=== PATIENT | female | born 1980 | race Caucasian/White ===

== ENCOUNTER 2016-12-03 09:44 | Emergency (ER) | payer MEDICARE, MEDICAID ==
[2015-11-04 15:32] VITALS: BMI 39.0
[~2016-12-03 09:44] MED LIST: ABILIFY2 MG PO; CYMBALTA60 MG PO; EFFEXOR75 MG PO; MELOXICAM PO; NEURONTIN600 MG PO; NEXIUM40 MG PO; PEPCID20 MG PO; PHENERGAN25 M1 PO; PROVENTIL HFA6.7 GM INH; REQUIP XL2 MG PO; REQUIP XL4 MG PO; TOPAMAX25 MG PO; TOPAMAX50 MG PO; TYLENOL #4 W/CO1 TAB PO; XANAX0.5 MG PO; ZANAFLEX4 MG PO
== END 2016-12-03 10:32 | disposition home or self-care (01) ==
LOC: D.ER 09:44
DX: M54.5 Low back pain (principal); M62.830 Muscle spasm of back

== ENCOUNTER 2017-06-18 07:44 | Emergency (ER) | payer MEDICARE, MEDICAID ==
[2015-11-04 15:32] VITALS: BMI 39.0
== END 2017-06-18 08:37 | disposition home or self-care (01) ==
LOC: D.ER 07:44
DX: G43.909 Migraine, unspecified, not intractable, without status migrainosus (principal)

== ENCOUNTER 2017-07-13 02:42 | Emergency (ER) | payer MEDICARE, MEDICAID | END 2017-07-13 03:45 | disposition home or self-care (01) | LOC: D.ER 02:42 | DX: S30.0XXA Contusion of lower back and pelvis, initial encounter (principal); W10.9XXA Fall (on) (from) unspecified stairs and steps, initial encounter; Y93.89 Activity, other specified; Y92.019 Unspecified place in single-family (private) house as the place of occurrence of the external cause; F17.200 Nicotine dependence, unspecified, uncomplicated ==

== ENCOUNTER 2017-11-06 07:26 | Emergency (ER) | payer MEDICARE, MEDICAID ==
[2015-11-04 15:32] VITALS: BMI 39.0
== END 2017-11-06 07:57 | disposition home or self-care (01) ==
LOC: D.ER 07:26
DX: J01.00 Acute maxillary sinusitis, unspecified (principal)

== ENCOUNTER 2018-04-16 07:26 | Emergency (ER) | payer MEDICARE, MEDICAID ==
[~2018-04-16] VITALS: Ht 160 cm; Wt 97.7 kg
[2018-04-16 07:28] VITALS: Ht 160 cm; Wt 97.7 kg
[2018-04-16] MEDS ORDERED: TYLENOL #4 W/CO1 TAB PO (08:41)
[2018-04-16 08:49] VITALS: BP 128/76
== END 2018-04-16 08:52 | disposition home or self-care (01) ==
LOC: D.ER 07:26
DX: M79.671 Pain in right foot (principal)

== ENCOUNTER 2018-04-30 22:04 | Emergency (ER) | payer MEDICARE, MEDICAID ==
[~2018-04-30] VITALS: Ht 160 cm; Wt 95.5 kg
[2018-04-30 22:16] VITALS: Ht 160 cm; Wt 95.5 kg
[2018-04-30 23:18] LABS: APPEARANCE HAZY (CLEAR); BILIRUBIN NEGATIVE (NEGATIVE); COLOR YELLOW (YELLOW); GLUCOSE NEGATIVE (NEGATIVE); KETONE NEGATIVE (NEGATIVE); NITRITE NEGATIVE (NEGATIVE); PROTEIN NEGATIVE (NEGATIVE); SPECIFIC GRAVITY 1.025 (1.005-1.020); UROBILINOGEN NORMAL (NORMAL)
[2018-04-30 23:27] LABS: AMORPHOUS SEDIMENT >1+ /lpf (NONE SEEN); BACTERIA MODERATE /hpf (NONE SEEN); EPITHELIAL CELLS OCC /hpf (0-5); HYALINE CAST 0-5 /lpf (NONE SEEN); MUCUS <1+ /lpf (NONE SEEN); RED CELLS - URINE 0-5 /hpf (0-5); WHITE CELLS - URINE 0-5 /hpf (0-5)
[2018-05-01] MEDS ORDERED: FLAGYL500 MG PO (00:56)
[2018-05-01 01:15] VITALS: BP 121/88
== END 2018-05-01 01:15 | disposition home or self-care (01) ==
LOC: D.ER 22:04
PROVIDERS: Family Medicine
DX: N76.0 Acute vaginitis (principal); B96.89 Other specified bacterial agents as the cause of diseases classified elsewhere

== ENCOUNTER 2018-05-08 19:49 | Emergency (ER) | payer MEDICARE, MEDICAID ==
[~2018-05-08] VITALS: Ht 160 cm; Wt 97.1 kg
[~2018-05-08 19:49] MED LIST changes: +FLAGYL500 MG PO
[2018-05-08 20:13] VITALS: Ht 160 cm; Wt 97.1 kg
[2018-05-08] MEDS ORDERED: TYLENOL #4 W/CO1 TAB PO (21:25)
[2018-05-08 21:57] VITALS: BP 128/89
== END 2018-05-08 21:58 | disposition home or self-care (01) ==
LOC: D.ER 19:49
DX: S93.601A Unspecified sprain of right foot, initial encounter (principal); X58.XXXA Exposure to other specified factors, initial encounter; Y93.89 Activity, other specified; Y92.019 Unspecified place in single-family (private) house as the place of occurrence of the external cause

== ENCOUNTER 2018-12-28 03:19 | Emergency (ER) | payer OTHER, MEDICAID ==
[~2018-12-28] VITALS: Ht 160 cm; Wt 87.3 kg
[2018-12-28 03:22] VITALS: Ht 160 cm; Wt 87.3 kg
[2018-12-28] MEDS ORDERED: NEURONTIN600 MG PO (03:25)
[2018-12-28] MEDS ORDERED: XANAX0.25 MG PO (03:25)
[2018-12-28 03:45] LABS: APPEARANCE CLEAR (CLEAR); BILIRUBIN NEGATIVE (NEGATIVE); COLOR STRAW (YELLOW); GLUCOSE NEGATIVE (NEGATIVE); KETONE NEGATIVE (NEGATIVE); NITRITE NEGATIVE (NEGATIVE); PROTEIN NEGATIVE (NEGATIVE); UROBILINOGEN NORMAL (NORMAL)
[2018-12-28 03:46] LABS: HCG URINE NEGATIVE (NEGATIVE)
[2018-12-28 03:53] LABS: UDS - AMPHET NEGATIVE QUAL (NEGATIVE); UDS - BARB NEGATIVE QUAL (NEGATIVE); UDS - BENZO NEGATIVE QUAL (NEGATIVE); UDS - COCAINE NEGATIVE QUAL (NEGATIVE); UDS - OPIATE POSITIVE QUAL (NEGATIVE); UDS - PCP NEGATIVE QUAL (NEGATIVE); UDS - THC POSITIVE QUAL (NEGATIVE)
[2018-12-28] MEDS ORDERED: ZITHROMAX TRI-500 MG PO (04:01)
[2018-12-28] MEDS ORDERED: TESSALON PERLE100 MG PO (04:01)
[2018-12-28 04:19] VITALS: BP 132/74
== END 2018-12-28 04:20 | disposition home or self-care (01) ==
LOC: D.ER 03:19
PROVIDERS: Family Medicine
DX: J40 Bronchitis, not specified as acute or chronic (principal); R05 Cough

== ENCOUNTER 2019-01-28 04:48 | Emergency (ER) | payer MEDICARE, MEDICAID ==
[~2019-01-28] VITALS: Ht 160 cm; Wt 84.5 kg
[~2019-01-28 04:48] MED LIST changes: +TESSALON PERLE100 MG PO; +XANAX0.25 MG PO; +ZITHROMAX TRI-500 MG PO
[2019-01-28 04:53] VITALS: Ht 160 cm; Wt 84.5 kg
[2019-01-28] MEDS ORDERED: PROMETHAZINE W473 ML PO (05:02)
[2019-01-28] MEDS ORDERED: ZITHROMAX500 MG PO (05:02)
[2019-01-28 05:50] VITALS: BP 124/73
== END 2019-01-28 05:50 | disposition home or self-care (01) ==
LOC: D.ER 04:48
DX: B96.0 Mycoplasma pneumoniae [M. pneumoniae] as the cause of diseases classified elsewhere (principal)

== ENCOUNTER → 2019-03-02 08:23 | Outpatient (CLI) | payer MEDICARE, MEDICAID ==
[2019-01-28 04:53] VITALS: BMI 33.0
[~2019-03-02 08:23] MED LIST changes: +ALBUTEROL SULF8.5 GM INH; +AMOXICILLIN500 M1 PO; +PROMETHAZINE W473 ML PO; +ZITHROMAX500 MG PO
== END | disposition home or self-care (01) ==
LOC: D.RAD 08:23
PROVIDERS: ATTEND Family Medicine
DX: M54.2 Cervicalgia (principal); M25.512 Pain in left shoulder

== ENCOUNTER 2019-03-06 00:17 | Emergency (ER) | payer MEDICARE, MEDICAID ==
[~2019-03-06 00:17] MED LIST changes: -ALBUTEROL SULF8.5 GM INH; -AMOXICILLIN500 M1 PO
[2019-03-06 00:21] VITALS: BMI 31.9
[2019-03-06] MEDS ORDERED: AMOXICILLIN500 M1 PO (00:46)
[2019-03-06] MEDS ORDERED: ZITHROMAX500 MG PO (00:46)
[2019-03-06 01:03] LABS: BASOPHILS 0.4 % (0-2); EOSINOPHILS 9.9 % (0-7); HEMATOCRIT 41.3 % (36.0-48.0); HEMOGLOBIN 13.6 g/dL (12-16); IMMATURE GRANULOCYTES 0.1 % (0-5); MCH 29.2 pg (26.0-34.0); MCHC 32.9 g/dL (31.0-37.0); MCV 88.8 fL (80.0-100.0); MEAN PLATELET VOLUME 9.9 fL (7.4-10.4); MONOCYTES 4.7 % (2-11); NEUTROPHILS 55.9 % (40-80); PLATELET COUNT 191 10x3/uL (130-400); RBC 4.65 10x6/uL (4.00-5.40); RDW 12.7 % (11.5-14.5); WBC 8.3 10x3/uL (4.8-10.8)
[2019-03-06 01:13] LABS: ALBUMIN 2.8 g/dL (3.4-5.0); ALKALINE PHOSPHATASE 59 U/L (46-116); ALT (SGPT) 23 U/L (10-68); CALC OSMOLALITY 279 mosm/kg (275-300); CALCIUM 8.5 mg/dL (8.5-10.1); CARBON DIOXIDE 23.1 mmol/L (21.0-32.0); CHLORIDE - SERUM 110 mmol/L (98-107); CREATININE - SERUM 0.8 mg/dL (0.6-1.3); GLUCOSE 98 mg/dL (74-106); POTASSIUM - SERUM 3.5 mmol/L (3.5-5.1); PROTEIN - SERUM 5.5 g/dL (6.4-8.2); SODIUM 141 mmol/L (136-145); UREA NITROGEN 11 mg/dL (7-18); eGFR NON AFRICAN AMERICAN 85 mL/min (90-120)
[2019-03-06 01:19] LABS: PRO BNP 115 pg/mL (0-125)
[2019-03-06] MEDS ORDERED: ALBUTEROL SULF8.5 GM INH (01:19)
[2019-03-06 01:27] VITALS: BP 110/68
[2019-05-05] MEDS ORDERED: IMITREX100 MG PO (08:22)
[2019-05-05] MEDS ORDERED: PROTONIX40 MG PO (08:22)
[2019-05-05] MEDS ORDERED: CYMBALTA60 MG PO (08:22)
[2019-05-05] MEDS ORDERED: XANAX1 MG PO (08:23)
== END 2019-03-06 01:27 | disposition home or self-care (01) ==
LOC: D.ER 00:17
PROVIDERS: Family Medicine
DX: J40 Bronchitis, not specified as acute or chronic (principal)

== ENCOUNTER 2019-03-26 00:22 | Emergency (ER) | payer MEDICARE, MEDICAID ==
[~2019-03-26 00:22] MED LIST changes: +ALBUTEROL SULF8.5 GM INH; +AMOXICILLIN500 M1 PO
[2019-03-26 00:28] VITALS: BMI 35.5
[2019-03-26 00:44] LABS: BASOPHILS 1.1 % (0-2); EOSINOPHILS 12.8 % (0-7); HEMATOCRIT 45.5 % (36.0-48.0); HEMOGLOBIN 14.9 g/dL (12-16); IMMATURE GRANULOCYTES 0.2 % (0-5); MCH 29.2 pg (26.0-34.0); MCHC 32.7 g/dL (31.0-37.0); MCV 89.2 fL (80.0-100.0); MEAN PLATELET VOLUME 9.7 fL (7.4-10.4); MONOCYTES 5.3 % (2-11); NEUTROPHILS 45.6 % (40-80); PLATELET COUNT 208 10x3/uL (130-400); RDW 12.8 % (11.5-14.5); WBC 10.3 10x3/uL (4.8-10.8)
[2019-03-26 00:48] LABS: INR 0.95 (0.85-1.17); PROTIME 12.2 SECONDS (11.6-15.0)
[2019-03-26 00:52] LABS: ALBUMIN 3.1 g/dL (3.4-5.0); ALKALINE PHOSPHATASE 61 U/L (46-116); ALT (SGPT) 20 U/L (10-68); BILIRUBIN - TOTAL 0.27 mg/dL (0.2-1.3); CALC OSMOLALITY 290 mosm/kg (275-300); CALCIUM 8.5 mg/dL (8.5-10.1); CARBON DIOXIDE 26.6 mmol/L (21.0-32.0); CHLORIDE - SERUM 111 mmol/L (98-107); CREATININE - SERUM 0.9 mg/dL (0.6-1.3); GLUCOSE 81 mg/dL (74-106); POTASSIUM - SERUM 4.1 mmol/L (3.5-5.1); SODIUM 145 mmol/L (136-145); UREA NITROGEN 22 mg/dL (7-18); eGFR NON AFRICAN AMERICAN 75 mL/min (90-120)
[2019-03-26 01:04] LABS: CKMB 1.9 U/L (0.0-3.6); CREATINE KINASE 109 UL (21-215); PRO BNP 60 pg/mL (0-125); TROPONIN-I < 0.017 ng/mL (0.000-0.060)
[2019-03-26] MEDS ORDERED: ALBUTEROL SULF8.5 GM INH (01:46)
[2019-03-26] MEDS ORDERED: LEVAQUIN750 MG PO (01:47)
[2019-03-26 02:25] VITALS: BP 125/76
[2019-05-05] MEDS ORDERED: CYMBALTA60 MG PO (08:22)
[2019-05-05] MEDS ORDERED: PROTONIX40 MG PO (08:22)
[2019-05-05] MEDS ORDERED: IMITREX100 MG PO (08:22)
[2019-05-05] MEDS ORDERED: XANAX1 MG PO (08:23)
== END 2019-03-26 02:26 | disposition home or self-care (01) ==
LOC: D.ER 00:22
PROVIDERS: Family Medicine
DX: J40 Bronchitis, not specified as acute or chronic (principal)

== ENCOUNTER 2019-03-31 05:03 | Emergency (ER) | payer MEDICARE, MEDICAID ==
[~2019-03-31 05:03] MED LIST changes: +LEVAQUIN750 MG PO
[2019-03-31 05:07] VITALS: BMI 32.8
[2019-03-31 05:27] LABS: BASOPHILS 0.7 % (0-2); EOSINOPHILS 12.8 % (0-7); HEMOGLOBIN 14.6 g/dL (12-16); IMMATURE GRANULOCYTES 0.3 % (0-5); LYMPHOCYTES 24.1 % (15-50); MCH 29.4 pg (26.0-34.0); MCHC 33.2 g/dL (31.0-37.0); MCV 88.5 fL (80.0-100.0); MEAN PLATELET VOLUME 9.8 fL (7.4-10.4); MONOCYTES 5.1 % (2-11); PLATELET COUNT 170 10x3/uL (130-400); RBC 4.97 10x6/uL (4.00-5.40); RDW 12.9 % (11.5-14.5); WBC 7.6 10x3/uL (4.8-10.8)
[2019-03-31 05:35] LABS: APTT 26.5 SECONDS (22.8-39.4); INR 0.96 (0.85-1.17); PROTIME 12.3 SECONDS (11.6-15.0)
[2019-03-31 05:40] LABS: ALBUMIN 3.2 g/dL (3.4-5.0); ALKALINE PHOSPHATASE 69 U/L (46-116); ALT (SGPT) 20 U/L (10-68); CALC OSMOLALITY 285 mosm/kg (275-300); CALCIUM 8.5 mg/dL (8.5-10.1); CHLORIDE - SERUM 110 mmol/L (98-107); GLUCOSE 95 mg/dL (74-106); POTASSIUM - SERUM 3.7 mmol/L (3.5-5.1); SODIUM 143 mmol/L (136-145); UREA NITROGEN 15 mg/dL (7-18); eGFR NON AFRICAN AMERICAN 66 mL/min (90-120)
[2019-03-31 05:52] LABS: CKMB 1.4 U/L (0.0-3.6); CREATINE KINASE 97 UL (21-215); PRO BNP 128 pg/mL (0-125)
[2019-03-31 05:55] LABS: TROPONIN-I < 0.017 ng/mL (0.000-0.060)
[2019-03-31 06:51] VITALS: BP 133/73
[2019-05-05] MEDS ORDERED: PROTONIX40 MG PO (08:22)
[2019-05-05] MEDS ORDERED: CYMBALTA60 MG PO (08:22)
[2019-05-05] MEDS ORDERED: IMITREX100 MG PO (08:22)
[2019-05-05] MEDS ORDERED: XANAX1 MG PO (08:23)
[2019-08-01] MEDS ORDERED: CYCLOBENZAPRINE10 MG PO (14:32)
== END 2019-03-31 06:50 | disposition home or self-care (01) ==
LOC: D.ER 05:03
PROVIDERS: Family Medicine
DX: J45.901 Unspecified asthma with (acute) exacerbation (principal); R09.02 Hypoxemia; R06.02 Shortness of breath

== ENCOUNTER 2019-04-02 17:08 | Emergency (ER) | payer MEDICARE, MEDICAID ==
[2019-04-02 17:13] VITALS: BMI 32.4
[2019-04-02 18:16] LABS: BASOPHILS 0.8 % (0-2); EOSINOPHILS 6.6 % (0-7); HEMATOCRIT 43.1 % (36.0-48.0); HEMOGLOBIN 14.5 g/dL (12-16); IMMATURE GRANULOCYTES 0.1 % (0-5); LYMPHOCYTES 20.5 % (15-50); MCH 29.5 pg (26.0-34.0); MCHC 33.6 g/dL (31.0-37.0); MCV 87.6 fL (80.0-100.0); MEAN PLATELET VOLUME 9.9 fL (7.4-10.4); MONOCYTES 4.6 % (2-11); NEUTROPHILS 67.4 % (40-80); PLATELET COUNT 164 10x3/uL (130-400); RBC 4.92 10x6/uL (4.00-5.40); RDW 12.6 % (11.5-14.5); WBC 7.8 10x3/uL (4.8-10.8)
[2019-04-02 18:17] LABS: APPEARANCE HAZY (CLEAR); BILIRUBIN NEGATIVE (NEGATIVE); COLOR YELLOW (YELLOW); GLUCOSE NEGATIVE (NEGATIVE); KETONE NEGATIVE (NEGATIVE); NITRITE NEGATIVE (NEGATIVE); PROTEIN NEGATIVE (NEGATIVE); UROBILINOGEN NORMAL (NORMAL)
[2019-04-02 18:34] LABS: ALKALINE PHOSPHATASE 51 U/L (46-116); ALT (SGPT) 21 U/L (10-68); BILIRUBIN - TOTAL 0.38 mg/dL (0.2-1.3); CALC OSMOLALITY 289 mosm/kg (275-300); CARBON DIOXIDE 26.1 mmol/L (21.0-32.0); CHLORIDE - SERUM 112 mmol/L (98-107); CREATININE - SERUM 0.9 mg/dL (0.6-1.3); GLUCOSE 89 mg/dL (74-106); POTASSIUM - SERUM 3.9 mmol/L (3.5-5.1); PROTEIN - SERUM 5.7 g/dL (6.4-8.2); SODIUM 145 mmol/L (136-145); UREA NITROGEN 18 mg/dL (7-18); eGFR NON AFRICAN AMERICAN 75 mL/min (90-120)
[2019-04-02 18:36] LABS: AMYLASE - SERUM 35 U/L (25-115); LIPASE 158 U/L (73-393)
[2019-04-02 18:37] LABS: TROPONIN-I < 0.017 ng/mL (0.000-0.060)
[2019-04-02] MEDS ORDERED: CALCIUM 250+D T1 TAB PO (19:34)
[2019-04-02] MEDS ORDERED: PHENERGAN25 M1 PO (19:34)
[2019-04-02 19:51] VITALS: BP 115/67
[2019-05-05] MEDS ORDERED: PROTONIX40 MG PO (08:22)
[2019-05-05] MEDS ORDERED: IMITREX100 MG PO (08:22)
[2019-05-05] MEDS ORDERED: CYMBALTA60 MG PO (08:22)
[2019-05-05] MEDS ORDERED: XANAX1 MG PO (08:23)
[2019-08-01] MEDS ORDERED: CYCLOBENZAPRINE10 MG PO (14:32)
== END 2019-04-02 19:51 | disposition home or self-care (01) ==
LOC: D.ER 17:08
PROVIDERS: Family Medicine
DX: R11.0 Nausea (principal); E83.51 Hypocalcemia; J40 Bronchitis, not specified as acute or chronic

== ENCOUNTER 2019-05-10 08:15 | Day surgery (SDC) | payer MEDICARE, MEDICAID ==
[2019-05-05 08:41] LABS: HEMOGLOBIN 13.9 g/dL (12-16); MCH 30.1 pg (26.0-34.0); MCHC 33.9 g/dL (31.0-37.0); MCV 88.7 fL (80.0-100.0); MEAN PLATELET VOLUME 9.5 fL (7.4-10.4); RBC 4.62 10x6/uL (4.00-5.40); RDW 13.3 % (11.5-14.5); WBC 7.8 10x3/uL (4.8-10.8)
[~2019-05-10] VITALS: Ht 160 cm; Wt 83.5 kg
[~2019-05-10 08:15] MED LIST changes: +CALCIUM 250+D T1 TAB PO; +IMITREX100 MG PO; +PROTONIX40 MG PO; +XANAX1 MG PO
[2019-05-10 11:59] VITALS: BP 116/68; Ht 160 cm; Wt 83.5 kg
--- NOTE | 2019-05-11 11:11 | OP ---
PATIENT NAME: ANSHUL OWUSU MEDICAL RECORD: [id number] :82 LOCATION:D.[facility] ADMISSION DATE: SURGEON: DANIELLA SCOTT MD DATE OF OPERATION: 05/10/2019 SURGEON: Daniella Scott MD ANESTHESIA: General anesthesia by Kal Tafoya CRNA. DIAGNOSES: Female stress urinary incontinence, midline cystocele, Tornado-Walker grade I, interstitial cystitis, papillary bladder tumor. PROCEDURES: 1. Cystoscopy, hydrodistention, and intravesical Rimso instillation. 2. Pubovaginal sling with [employer] Obtryx II mesh sling. 3. Bladder tumor resection. FINDINGS: On cystoscopy, single ureteral orifices bilaterally. There is a papillary bladder tumor 5 mm in size adjacent to the right ureteral orifice. There was no bladder injury. There is a diffusely inflamed bladder present. Cystocele grade I on Tornado-Walker scale. BLOOD LOSS: None. CLINICAL HISTORY: This is a 39-year-old female, who has a history of urinary incontinence. She previously had a hysterectomy for uterine mass, which turned out to be benign. She has to urinate very frequently every 30 minutes and she leaks urine with coughing and sneezing. She has nocturia times 3-4. There is also urge incontinence. She was a former cigarette smoker from age [age]. On examination, she had stress urinary incontinence with urethral hypermobility and a positive Jasmeet test. There was trigonal tenderness and a grade I cystocele on the Tornado-Walker scale. She comes today in initially with the plan of treating the interstitial cystitis with hydrodistention and Rimso. The stress urinary incontinence would be treated with a pubovaginal sling. I had planned originally to repair the cystocele. SHE IS ALLERGIC TO CORTICOSTEROIDS, MORPHINE, TRAMADOL, AND ZOFRAN. She was given Ancef tape control skin or spar mill operator to the OR. DESCRIPTION OF PROCEDURE: The patient was given induction of general anesthesia in the supine position. She was then placed into dorsal lithotomy position and prepped and draped. A weighted speculum was used to hold down the posterior vaginal wall. A Lou catheter was inserted into the bladder and put to bag drainage. At this point, I examined the cystocele and it is so minor that it is not worth repairing. Therefore, I decided to just proceed with the pubovaginal sling. #2 nylon sutures were used to hold the labia majora laterally. These stay sutures were anchored to the medial thighs. The anterior vaginal wall was infiltrated with Pitressin solution. Twenty units of vasopressin was dissolved in 100 mL of injectable normal saline. The solution was used for hydrodissection in the periurethral area. A midline incision was made about 1 cm in length along just under the surface of the urethra. Dissection was then made with Metzenbaum scissors to extend laterally to the pubocervical fascia into the obturator membrane surface, which was cleared off using blunt dissection with the finger. We then landmarked for OPERATIVE REPORT [id number] ANSHUL OWUSU the insertion of the transobturator sling passage. This is just inferior to the insertion of the adductor longus muscle onto the descending pubic ramus. Stab incisions were made here. The helical trocars of the [employer] Obtryx system were then brought deep to the descending pubic ramus and it exited and entered into the vaginal dissection space along the anterior apex of the obturator membrane. Here the tip of the sling was attached to the tip of the needle and the needle and the needles were withdrawn to result in transobturator passage of the graft. There is a tab on the midportion of the graft and this tab was placed under the mid urethra. At this point, we removed the Lou catheter and performed cystoscopy. On performing cystoscopy, we noted a papillary bladder tumor, a bit lateral and cranial to the right ureteral orifice. Hydrodistention with 500 mL of fluid was performed. There was no bladder injury or urethral injury from the trocar passage for the sling. The hydrodistention was maintained for about 2 minutes and then the bladder was emptied. I then put a grasping forceps and using the grasping forceps, the bladder tumor was removed and sent to pathology in formalin. The base where the tumor had been was not bleeding and therefore, I did not need to coagulate it. Also it would be dangerous to coagulate it as it is very close to the ureteral orifice. We then refilled the bladder. By pushing suprapubically, we could get the urine to come out of the urethra. The sling tension was gradually increased until suprapubic pressure no longer resulted in leakage of urine. At this point, we had our sling tension. The clear plastic sheath material on either graft arm was removed by cutting the stitch and removing the sheath material. A hemostat was placed between the urethra and the sling in order to prevent removal of the sheath material from increasing the sling tension. The graft arms were cut where they exited the groin skin. The skin stab incisions were closed using simple interrupted 4-0 Vicryl sutures. The wound was irrigated out from the vaginal area and then the vaginal incision was closed using running 4-0 Monocryl. Finally, a Lou catheter was inserted into the bladder and the bladder was drained. Through this Lou catheter, 50 mL of intravesical Rimso solution was instilled into the bladder. The patient will hold this in for 15 minutes and then try to void it out. I will see her in followup in 2 weeks' time. TRANSINT:[id number] Voice Confirmation ID: [id number] DOCUMENT ID: [id number] DANIELLA SCOTT MD at 1111 CC: [id number] DICTATION DATE: 05/10/191726 FIBREGLASS LAY UP WORKER: 05/10/192109 [facility] 05/10/19 [facility] [address] [place] [address]
== END 2019-05-10 19:45 | disposition home or self-care (01) ==
LOC: D.OPS 08:15 → D.PAN 11:30 → D.OPS 11:30
PROVIDERS: Anesthesiology; ATTEND Urology
DX: N39.46 Mixed incontinence (principal); N81.11 Cystocele, midline; N30.10 Interstitial cystitis (chronic) without hematuria; D41.4 Neoplasm of uncertain behavior of bladder; Z88.5 Allergy status to narcotic agent; Z88.8 Allergy status to other drugs, medicaments and biological substances; Z01.812 Encounter for preprocedural laboratory examination

== ENCOUNTER 2019-05-17 03:40 | Emergency (ER) | payer MEDICARE, MEDICAID ==
[~2019-05-17] VITALS: Ht 160 cm; Wt 85.5 kg
[2019-05-17 03:45] VITALS: Ht 160 cm; Wt 85.5 kg
[2019-05-17 04:51] LABS: BASOPHILS 0.9 % (0-2); HEMOGLOBIN 14.6 g/dL (12-16); IMMATURE GRANULOCYTES 0.3 % (0-5); LYMPHOCYTES 33.4 % (15-50); MCH 29.7 pg (26.0-34.0); MCV 87.4 fL (80.0-100.0); MONOCYTES 5.7 % (2-11); NEUTROPHILS 48.7 % (40-80); PLATELET COUNT 219 10x3/uL (130-400); RBC 4.92 10x6/uL (4.00-5.40); RDW 13.3 % (11.5-14.5)
[2019-05-17 05:01] LABS: ALBUMIN 2.9 g/dL (3.4-5.0); ANION GAP 12.1 mmol/L (8-16); BILIRUBIN - TOTAL 0.29 mg/dL (0.2-1.3); CALCIUM 7.7 mg/dL (8.5-10.1); CARBON DIOXIDE 22.7 mmol/L (21.0-32.0); CREATININE - SERUM 0.9 mg/dL (0.6-1.3); POTASSIUM - SERUM 3.8 mmol/L (3.5-5.1); PROTEIN - SERUM 5.8 g/dL (6.4-8.2)
[2019-05-17 05:05] LABS: APTT 27.7 SECONDS (22.8-39.4); INR 0.99 (0.85-1.17); PROTIME 12.6 SECONDS (11.6-15.0)
[2019-05-17 05:39] LABS: APPEARANCE CLEAR (CLEAR); BILIRUBIN NEGATIVE (NEGATIVE); COLOR YELLOW (YELLOW); GLUCOSE NEGATIVE (NEGATIVE); KETONE NEGATIVE (NEGATIVE); NITRITE NEGATIVE (NEGATIVE); PROTEIN NEGATIVE (NEGATIVE); SPECIFIC GRAVITY 1.005 (1.005-1.020); UROBILINOGEN NORMAL (NORMAL)
[2019-05-17 06:35] VITALS: BP 112/73
== END 2019-05-17 06:35 | disposition home or self-care (01) ==
LOC: D.ER 03:40
PROVIDERS: Emergency Medicine
DX: G89.18 Other acute postprocedural pain (principal); N99.820 Postprocedural hemorrhage of a genitourinary system organ or structure following a genitourinary system procedure; C67.9 Malignant neoplasm of bladder, unspecified

== ENCOUNTER 2019-06-04 02:56 | Emergency (ER) | payer MEDICARE, MEDICAID ==
[~2019-06-04] VITALS: Ht 160 cm; Wt 84.5 kg
[2019-06-04 03:00] VITALS: Ht 160 cm; Wt 84.5 kg
[2019-06-04 03:39] LABS: BASOPHILS 0.7 % (0-2); HEMATOCRIT 40.8 % (36.0-48.0); HEMOGLOBIN 13.5 g/dL (12-16); IMMATURE GRANULOCYTES 0.2 % (0-5); LYMPHOCYTES 36.1 % (15-50); MCH 29.5 pg (26.0-34.0); MCHC 33.1 g/dL (31.0-37.0); MCV 89.3 fL (80.0-100.0); MEAN PLATELET VOLUME 9.6 fL (7.4-10.4); RBC 4.57 10x6/uL (4.00-5.40); RDW 13.7 % (11.5-14.5); WBC 8.2 10x3/uL (4.8-10.8)
[2019-06-04 03:41] LABS: PLATELET COUNT 174 10x3/uL (130-400)
[2019-06-04 03:46] LABS: APTT 27.3 SECONDS (22.8-39.4); INR 0.97 (0.85-1.17); PROTIME 12.4 SECONDS (11.6-15.0)
[2019-06-04 03:52] LABS: ALKALINE PHOSPHATASE 55 U/L (46-116); ALT (SGPT) 16 U/L (10-68); BILIRUBIN - TOTAL 0.24 mg/dL (0.2-1.3); CALC OSMOLALITY 277 mosm/kg (275-300); CALCIUM 8.2 mg/dL (8.5-10.1); CARBON DIOXIDE 23.8 mmol/L (21.0-32.0); CHLORIDE - SERUM 108 mmol/L (98-107); GLUCOSE 90 mg/dL (74-106); POTASSIUM - SERUM 3.5 mmol/L (3.5-5.1); SODIUM 138 mmol/L (136-145); UREA NITROGEN 17 mg/dL (7-18); eGFR NON AFRICAN AMERICAN 66 mL/min (90-120)
[2019-06-04 04:03] LABS: CKMB 0.6 U/L (0.0-3.6); CREATINE KINASE 51 UL (21-215); PRO BNP 171 pg/mL (0-125)
[2019-06-04 04:10] LABS: TROPONIN-I < 0.017 ng/mL (0.000-0.060)
[2019-06-04] MEDS ORDERED: ZPAK PO (05:37)
[2019-06-04 06:06] VITALS: BP 109/70
[2019-08-01] MEDS ORDERED: CYCLOBENZAPRINE10 MG PO (14:32)
== END 2019-06-04 06:06 | disposition home or self-care (01) ==
LOC: D.ER 02:56
PROVIDERS: Family Medicine
DX: J20.9 Acute bronchitis, unspecified (principal)

== ENCOUNTER 2019-06-05 17:34 | Emergency (ER) | payer MEDICARE, MEDICAID ==
[~2019-06-05 17:34] MED LIST changes: +ZPAK PO
[2019-06-05 17:37] VITALS: Ht 160 cm
[2019-06-05 19:47] VITALS: BP 113/69
[2019-08-01] MEDS ORDERED: CYCLOBENZAPRINE10 MG PO (14:32)
== END 2019-06-05 19:47 | disposition home or self-care (01) ==
LOC: D.ER 17:34
DX: G43.909 Migraine, unspecified, not intractable, without status migrainosus (principal)

== ENCOUNTER 2019-07-01 03:12 | Emergency (ER) | payer MEDICARE, MEDICAID ==
[~2019-07-01] VITALS: Ht 160 cm; Wt 90.9 kg
[2019-07-01 03:17] VITALS: Ht 160 cm; Wt 90.9 kg
[2019-07-01 04:22] VITALS: BP 121/68
== END 2019-07-01 04:22 | disposition home or self-care (01) ==
LOC: D.ER 03:12
DX: G43.909 Migraine, unspecified, not intractable, without status migrainosus (principal)

== ENCOUNTER 2019-07-10 06:04 | Emergency (ER) | payer MEDICARE, MEDICAID ==
[~2019-07-10] VITALS: Ht 160 cm; Wt 93.2 kg
[2019-07-10 06:06] VITALS: Ht 160 cm; Wt 93.2 kg
[2019-07-10] MEDS ORDERED: TYLENOL W/CODEI1 TAB PO (06:36)
[2019-07-10 07:31] VITALS: BP 116/74
== END 2019-07-10 07:31 | disposition home or self-care (01) ==
LOC: D.ER 06:04
DX: M54.5 Low back pain (principal)

== ENCOUNTER 2019-07-25 21:27 | Emergency (ER) | payer MEDICARE, MEDICAID ==
[~2019-07-25] VITALS: Ht 160 cm; Wt 90.0 kg
[~2019-07-25 21:27] MED LIST changes: +TYLENOL W/CODEI1 TAB PO
[2019-07-25 21:50] VITALS: Ht 160 cm; Wt 90.0 kg
[2019-07-26 00:25] VITALS: BP 134/79
[2019-08-01] MEDS ORDERED: CYCLOBENZAPRINE10 MG PO (14:32)
== END 2019-07-26 00:25 | disposition home or self-care (01) ==
LOC: D.ER 21:27
DX: G43.909 Migraine, unspecified, not intractable, without status migrainosus (principal)

== ENCOUNTER 2019-07-29 20:56 | Emergency (ER) | payer MEDICARE, MEDICAID ==
[~2019-07-29] VITALS: Ht 160 cm; Wt 88.6 kg
[2019-07-29 21:00] VITALS: Ht 160 cm; Wt 88.6 kg
[2019-07-30 00:04] VITALS: BP 103/56
[2019-08-01] MEDS ORDERED: CYCLOBENZAPRINE10 MG PO (14:32)
== END 2019-07-30 00:07 | disposition home or self-care (01) ==
LOC: D.ER 20:56
DX: G43.909 Migraine, unspecified, not intractable, without status migrainosus (principal)

== ENCOUNTER 2019-08-02 05:13 | Day surgery (SDC) | payer MEDICARE, MEDICAID ==
[~2019-08-02] VITALS: Ht 160 cm; Wt 89.4 kg
[~2019-08-02 05:13] MED LIST changes: +CYCLOBENZAPRINE10 MG PO
[2019-08-02 05:53] LABS: BASOPHILS 0.7 % (0-2); EOSINOPHILS 10.1 % (0-7); HEMATOCRIT 42.3 % (36.0-48.0); HEMOGLOBIN 13.7 g/dL (12-16); IMMATURE GRANULOCYTES 0.2 % (0-5); LYMPHOCYTES 30.1 % (15-50); MCH 29.8 pg (26.0-34.0); MCHC 32.4 g/dL (31.0-37.0); MEAN PLATELET VOLUME 9.3 fL (7.4-10.4); MONOCYTES 5.9 % (2-11); PLATELET COUNT 204 10x3/uL (130-400); RDW 13.1 % (11.5-14.5); WBC 5.9 10x3/uL (4.8-10.8)
[2019-08-02 06:24] LABS: APTT 27.9 SECONDS (22.8-39.4); INR 0.99 (0.85-1.17); PROTIME 12.6 SECONDS (11.6-15.0)
[2019-08-02 06:37] VITALS: BP 97/63; Ht 160 cm; Wt 89.4 kg
--- NOTE | 2019-08-02 10:22 | NUR ---
1017 DR. TYLER GOLDBERG. WATER SERVED.
--- NOTE | 2019-08-02 10:31 | NUR ---
1030 FL DIET SERVED. FRIEND RETURNED TO ROOM.
--- NOTE | 2019-08-02 10:59 | OP ---
PATIENT NAME: ANSHUL OWUSU MEDICAL RECORD: [id number] :82 LOCATION:D.OPS ADMISSION DATE: SURGEON: LINUS SCOTT MD DATE OF OPERATION: 08/02/2019 SURGEON: Linus Scott MD ANESTHESIA: TIVA by Irene Finn CRNA DIAGNOSES: History of bladder cancer, interstitial cystitis. PROCEDURES: Cystoscopy, hydrodistention of the bladder, intravesical Rimso instillation 50 mL. FINDINGS: Diffusely inflamed bladder without bladder tumors. Single ureteral orifices bilaterally. BLOOD LOSS: None. CLINICAL HISTORY: This is a 39-year-old female who is a former smoker. She had a pubovaginal sling as well as treatment of interstitial cystitis with hydrodistention and Rimso back in April of 2019. At that time, a small papillary bladder tumor was noted and it was removed. The pathology on the bladder tumor was superficial low-grade bladder cancer. She comes now for surveillance cystoscopy. SHE IS ALLERGIC TO MORPHINE, ZOFRAN, AND STEROIDS. She was given Ancef manager location to the OR. DESCRIPTION OF PROCEDURE: The patient was given IV sedation. She was placed in lithotomy position and prepped and draped. A 17-Polish cystoscope with 30-degree lens was used for visualization. Findings are as outlined above. Since there were no bladder tumors visible, but diffuse bladder inflammation was present, I then proceeded to hydrodistend the bladder with 600 mL of fluid for about 2 minutes. The bladder was then emptied through the scope sheath and the scope was removed. A 16-Polish red rubber catheter was used to instill 50 mL of Rimso solution into the bladder. The catheter was then removed, leaving the solution in the bladder. She will hold the solution for about 15 minutes and then void it out. I will see her in followup in 2 weeks' time. TRANSINT:[id number] Voice Confirmation ID: [id number] DOCUMENT ID: [id number] LINUS SCOTT MD at 1059 CC: [id number] DICTATION DATE: 08/02/19 1012 HEATER ROOM HELPER: 08/02/19 1042 [facility] [address] [place] [address]
== END 2019-08-02 10:55 | disposition home or self-care (01) ==
LOC: D.OPS 05:13 → D.PAN 09:30 → D.OPS 09:30
PROVIDERS: Anesthesiology; ATTEND Urology
DX: N30.10 Interstitial cystitis (chronic) without hematuria (principal)

== ENCOUNTER 2019-08-06 22:50 | Emergency (ER) | payer MEDICARE, MEDICAID ==
[~2019-08-06] VITALS: Ht 160 cm; Wt 90.9 kg
[2019-08-06 23:04] VITALS: Ht 160 cm; Wt 90.9 kg
[2019-08-06] MEDS ORDERED: ABILIFY10 MG PO (23:06)
[2019-08-06 23:30] LABS: BASOPHILS 0.5 % (0-2); EOSINOPHILS 7.8 % (0-7); HEMATOCRIT 45.4 % (36.0-48.0); HEMOGLOBIN 15.1 g/dL (12-16); IMMATURE GRANULOCYTES 0.1 % (0-5); LYMPHOCYTES 29.5 % (15-50); MCH 30.3 pg (26.0-34.0); MCHC 33.3 g/dL (31.0-37.0); MCV 91.2 fL (80.0-100.0); MEAN PLATELET VOLUME 9.3 fL (7.4-10.4); MONOCYTES 5.6 % (2-11); NEUTROPHILS 56.5 % (40-80); PLATELET COUNT 213 10x3/uL (130-400); RBC 4.98 10x6/uL (4.00-5.40); RDW 12.8 % (11.5-14.5); WBC 7.5 10x3/uL (4.8-10.8)
[2019-08-06 23:35] LABS: APPEARANCE CLOUDY (CLEAR); BACTERIA NONE SEEN /hpf (NEGATIVE); BILIRUBIN NEGATIVE (NEGATIVE); COLOR YELLOW (YELLOW); EPITHELIAL CELLS NSEEN /hpf (0-5); GLUCOSE NEGATIVE (NEGATIVE); KETONE SMALL mg/dL (NEGATIVE); NITRITE NEGATIVE (NEGATIVE); PROTEIN NEGATIVE (NEGATIVE); RED CELLS - URINE 0-5 /hpf (0-5); UROBILINOGEN NORMAL (NORMAL); WHITE CELLS - URINE 0-5 /hpf (NEGATIVE)
[2019-08-06 23:36] LABS: AMORPHOUS SEDIMENT >1+ /lpf (NONE SEEN)
[2019-08-06 23:44] LABS: ALBUMIN 3.8 g/dL (3.4-5.0); ALKALINE PHOSPHATASE 75 U/L (46-116); ALT (SGPT) 17 U/L (10-68); AMYLASE - SERUM 36 U/L (25-115); CALC OSMOLALITY 281 mosm/kg (275-300); CALCIUM 8.6 mg/dL (8.5-10.1); CARBON DIOXIDE 24.1 mmol/L (21.0-32.0); CHLORIDE - SERUM 107 mmol/L (98-107); CREATININE - SERUM 0.8 mg/dL (0.6-1.3); GLUCOSE 99 mg/dL (74-106); LIPASE 118 U/L (73-393); POTASSIUM - SERUM 3.9 mmol/L (3.5-5.1); PROTEIN - SERUM 7.7 g/dL (6.4-8.2); SODIUM 141 mmol/L (136-145); UREA NITROGEN 16 mg/dL (7-18); eGFR NON AFRICAN AMERICAN 85 mL/min (90-120)
[2019-08-07] MEDS ORDERED: MACROBID100 MG PO (00:25)
[2019-08-07] MEDS ORDERED: LOMOTIL 2.5-0.1 EAC1 PO (00:25)
[2019-08-07] MEDS ORDERED: PHENERGAN25 M1 PO (00:26)
[2019-08-07 00:38] VITALS: BP 130/64
== END 2019-08-07 00:38 | disposition home or self-care (01) ==
LOC: D.ER 22:50
PROVIDERS: Family Medicine
DX: A08.4 Viral intestinal infection, unspecified (principal); N39.0 Urinary tract infection, site not specified

== ENCOUNTER 2019-08-15 22:00 | Emergency (ER) | payer MEDICARE, MEDICAID ==
[~2019-08-15] VITALS: Ht 160 cm; Wt 90.5 kg
[~2019-08-15 22:00] MED LIST changes: +ABILIFY10 MG PO; +LOMOTIL 2.5-0.1 EAC1 PO; +MACROBID100 MG PO
[2019-08-15 22:08] VITALS: Ht 160 cm; Wt 90.5 kg
[2019-08-15 23:13] VITALS: BP 124/89
== END 2019-08-15 23:13 | disposition home or self-care (01) ==
LOC: D.ER 22:00
DX: M54.9 Dorsalgia, unspecified (principal)

== ENCOUNTER 2019-08-20 21:48 | Emergency (ER) | payer MEDICARE, MEDICAID ==
[~2019-08-20] VITALS: Ht 160 cm; Wt 88.6 kg
[2019-08-20 22:26] VITALS: Ht 160 cm; Wt 88.6 kg
[2019-08-20] MEDS ORDERED: TORADOL10 MG PO (22:40)
[2019-08-20] MEDS ORDERED: ZYRTEC10 MG PO (22:40)
[2019-08-20] MEDS ORDERED: AUGMENTIN 875-11 TAB PO (22:40)
[2019-08-20 23:11] VITALS: BP 110/80
== END 2019-08-20 23:11 | disposition home or self-care (01) ==
LOC: D.ER 21:48
DX: J32.9 Chronic sinusitis, unspecified (principal); K02.9 Dental caries, unspecified

== ENCOUNTER 2019-08-27 01:33 | Emergency (ER) | payer MEDICARE, MEDICAID ==
[~2019-08-27] VITALS: Ht 160 cm; Wt 88.6 kg
[~2019-08-27 01:33] MED LIST changes: +AUGMENTIN 875-11 TAB PO; +TORADOL10 MG PO; +ZYRTEC10 MG PO
[2019-08-27 01:38] VITALS: Ht 160 cm; Wt 88.6 kg
[2019-08-27 01:55] LABS: BASOPHILS 0.6 % (0-2); EOSINOPHILS 7.6 % (0-7); HEMATOCRIT 44.4 % (36.0-48.0); HEMOGLOBIN 14.6 g/dL (12-16); IMMATURE GRANULOCYTES 0.2 % (0-5); LYMPHOCYTES 28.6 % (15-50); MCHC 32.9 g/dL (31.0-37.0); MCV 91.2 fL (80.0-100.0); MEAN PLATELET VOLUME 9.7 fL (7.4-10.4); MONOCYTES 7.2 % (2-11); NEUTROPHILS 55.8 % (40-80); PLATELET COUNT 192 10x3/uL (130-400); RBC 4.87 10x6/uL (4.00-5.40); RDW 12.8 % (11.5-14.5)
[2019-08-27 01:56] LABS: APPEARANCE HAZY (CLEAR); BILIRUBIN NEGATIVE (NEGATIVE); COLOR YELLOW (YELLOW); GLUCOSE NEGATIVE (NEGATIVE); KETONE NEGATIVE (NEGATIVE); NITRITE NEGATIVE (NEGATIVE); PROTEIN NEGATIVE (NEGATIVE); SPECIFIC GRAVITY 1.005 (1.005-1.020); UROBILINOGEN NORMAL (NORMAL); WHITE CELLS - URINE RARE /hpf (NEGATIVE)
[2019-08-27 01:57] LABS: AMORPHOUS SEDIMENT >1+ /lpf (NONE SEEN); EPITHELIAL CELLS OCC /hpf (0-5)
[2019-08-27 01:58] LABS: UDS - AMPHET NEGATIVE QUAL (NEGATIVE); UDS - BARB NEGATIVE QUAL (NEGATIVE); UDS - BENZO NEGATIVE QUAL (NEGATIVE); UDS - COCAINE NEGATIVE QUAL (NEGATIVE); UDS - OPIATE NEGATIVE QUAL (NEGATIVE); UDS - PCP NEGATIVE QUAL (NEGATIVE); UDS - THC POSITIVE QUAL (NEGATIVE)
[2019-08-27 02:03] LABS: CALC OSMOLALITY 283 mosm/kg (275-300); CARBON DIOXIDE 25.9 mmol/L (21.0-32.0); CHLORIDE - SERUM 108 mmol/L (98-107); CREATININE - SERUM 0.8 mg/dL (0.6-1.3); GLUCOSE 83 mg/dL (74-106); POTASSIUM - SERUM 3.5 mmol/L (3.5-5.1); SODIUM 143 mmol/L (136-145); UREA NITROGEN 12 mg/dL (7-18); eGFR NON AFRICAN AMERICAN 85 mL/min (90-120)
[2019-08-27 02:10] LABS: ALBUMIN 3.6 g/dL (3.4-5.0); ALKALINE PHOSPHATASE 75 U/L (46-116); ALT (SGPT) 26 U/L (10-68); LIPASE 240 U/L (73-393); PROTEIN - SERUM 7.2 g/dL (6.4-8.2)
[2019-08-27 03:12] LABS: HCG URINE NEGATIVE (NEGATIVE)
[2019-08-27 03:51] VITALS: BP 132/73
== END 2019-08-27 03:52 | disposition home or self-care (01) ==
LOC: D.ER 01:33
PROVIDERS: Family Medicine
DX: R10.9 Unspecified abdominal pain (principal)

== ENCOUNTER 2019-08-31 05:27 | Emergency (ER) | payer MEDICARE, MEDICAID ==
[~2019-08-31] VITALS: Ht 160 cm; Wt 90.5 kg
[2019-08-31 05:38] VITALS: Ht 160 cm; Wt 90.5 kg
[2019-08-31 06:05] LABS: APPEARANCE CLOUDY (CLEAR); COLOR YELLOW (YELLOW)
[2019-08-31 06:07] LABS: BILIRUBIN NEGATIVE (NEGATIVE); GLUCOSE NEGATIVE (NEGATIVE); KETONE NEGATIVE (NEGATIVE); NITRITE NEGATIVE (NEGATIVE); PROTEIN 2+ mg/dL (NEGATIVE); UROBILINOGEN NORMAL (NORMAL)
[2019-08-31 06:11] LABS: BACTERIA MANY /hpf (NEGATIVE); EPITHELIAL CELLS 0-5 /hpf (0-5)
[2019-08-31] MEDS ORDERED: MACROBID100 MG PO (06:21)
[2019-08-31] MEDS ORDERED: VALTREX1000 MG PO (06:21)
[2019-08-31] MEDS ORDERED: DIFLUCAN150 MG PO (06:24)
[2019-08-31 06:42] VITALS: BP 121/77
== END 2019-08-31 06:38 | disposition home or self-care (01) ==
LOC: D.ER 05:27
PROVIDERS: Family Medicine
DX: N39.0 Urinary tract infection, site not specified (principal); B00.9 Herpesviral infection, unspecified

== ENCOUNTER 2019-09-12 12:14 | Emergency (ER) | payer MEDICARE, MEDICAID ==
[~2019-09-12] VITALS: Ht 160 cm; Wt 88.6 kg
[~2019-09-12 12:14] MED LIST changes: +DIFLUCAN150 MG PO; +VALTREX1000 MG PO
[2019-09-12 12:38] VITALS: Ht 160 cm; Wt 88.6 kg
[2019-09-12] MEDS ORDERED: AMOXICILLIN500 M1 PO (13:21)
[2019-09-12 13:37] VITALS: BP 122/74
== END 2019-09-12 13:37 | disposition home or self-care (01) ==
LOC: D.ER 12:14
DX: H66.91 Otitis media, unspecified, right ear (principal); R09.81 Nasal congestion; R68.83 Chills (without fever)

== ENCOUNTER 2019-09-13 12:45 | Emergency (ER) | payer MEDICARE, MEDICAID ==
[~2019-09-13] VITALS: Ht 160 cm; Wt 88.6 kg
[2019-09-13 12:52] VITALS: BP 115/74; Ht 160 cm; Wt 88.6 kg
[2019-09-13 13:51] LABS: CALC OSMOLALITY 278 mosm/kg (275-300); CALCIUM 9.1 mg/dL (8.5-10.1); CARBON DIOXIDE 21.9 mmol/L (21.0-32.0); CHLORIDE - SERUM 106 mmol/L (98-107); CREATININE - SERUM 0.8 mg/dL (0.6-1.3); GLUCOSE 116 mg/dL (74-106); POTASSIUM - SERUM 3.8 mmol/L (3.5-5.1); SODIUM 139 mmol/L (136-145); UREA NITROGEN 13 mg/dL (7-18); eGFR NON AFRICAN AMERICAN 85 mL/min (90-120)
[2019-09-13 13:58] LABS: ALBUMIN 3.8 g/dL (3.4-5.0); ALKALINE PHOSPHATASE 76 U/L (46-116); ALT (SGPT) 34 U/L (10-68); BILIRUBIN - TOTAL 0.45 mg/dL (0.2-1.3); PROTEIN - SERUM 7.5 g/dL (6.4-8.2)
[2019-09-13 14:09] LABS: APPEARANCE CLEAR (CLEAR); BILIRUBIN NEGATIVE (NEGATIVE); COLOR YELLOW (YELLOW); GLUCOSE NEGATIVE (NEGATIVE); KETONE NEGATIVE (NEGATIVE); NITRITE NEGATIVE (NEGATIVE); PROTEIN NEGATIVE (NEGATIVE); UROBILINOGEN NORMAL (NORMAL)
[2019-09-13 14:14] LABS: BASOPHILS 0.3 % (0-2); EOSINOPHILS 1.4 % (0-7); HEMATOCRIT 42.5 % (36.0-48.0); HEMOGLOBIN 14.4 g/dL (12-16); IMMATURE GRANULOCYTES 0.3 % (0-5); LYMPHOCYTES 24.9 % (15-50); MCH 29.9 pg (26.0-34.0); MCHC 33.9 g/dL (31.0-37.0); MCV 88.2 fL (80.0-100.0); MEAN PLATELET VOLUME 9.4 fL (7.4-10.4); MONOCYTES 6.3 % (2-11); NEUTROPHILS 66.8 % (40-80); PLATELET COUNT 264 10x3/uL (130-400); RBC 4.82 10x6/uL (4.00-5.40); RDW 13.4 % (11.5-14.5)
== END 2019-09-13 15:53 | disposition left against medical advice (07) ==
LOC: D.ER 12:45
PROVIDERS: Family Medicine
DX: R42 Dizziness and giddiness (principal); Z53.21 Procedure and treatment not carried out due to patient leaving prior to being seen by health care provider

== ENCOUNTER 2019-09-14 02:14 | Emergency (ER) | payer MEDICARE, MEDICAID ==
[~2019-09-14] VITALS: Ht 160 cm; Wt 88.2 kg
[2019-09-14 02:26] VITALS: Ht 160 cm; Wt 88.2 kg
[2019-09-14 03:23] VITALS: BP 118/74
== END 2019-09-14 03:23 | disposition home or self-care (01) ==
LOC: D.ER 02:14
DX: S51.812A Laceration without foreign body of left forearm, initial encounter (principal); X58.XXXA Exposure to other specified factors, initial encounter; Y93.9 Activity, unspecified; Y92.9 Unspecified place or not applicable

== ENCOUNTER 2019-09-18 20:22 | Observation (INO) | payer MEDICARE, MEDICAID ==
[~2019-09-18] VITALS: Ht 160 cm; Wt 88.6 kg
[2019-09-18] MEDS ORDERED: ZANAFLEX4 MG PO (20:27)
[2019-09-18 21:02] VITALS: BP 83/38
[2019-09-18 21:03] LABS: ANION GAP 11.2 mmol/L (8-16); CALCIUM 7.2 mg/dL (8.5-10.1); CARBON DIOXIDE 25.3 mmol/L (21.0-32.0); CREATININE - SERUM 0.9 mg/dL (0.6-1.3); POTASSIUM - SERUM 3.5 mmol/L (3.5-5.1)
[2019-09-18 21:09] LABS: ALBUMIN 2.6 g/dL (3.4-5.0); BILIRUBIN - TOTAL 0.36 mg/dL (0.2-1.3); MAGNESIUM - SERUM 1.7 mg/dL (1.8-2.4); PROTEIN - SERUM 5.1 g/dL (6.4-8.2)
[2019-09-18 21:21] LABS: BASOPHILS 0.2 % (0-2); EOSINOPHILS 0.8 % (0-7); HEMATOCRIT 39.8 % (36.0-48.0); HEMOGLOBIN 13.4 g/dL (12-16); IMMATURE GRANULOCYTES 0.2 % (0-5); LYMPHOCYTES 28.2 % (15-50); MCHC 33.7 g/dL (31.0-37.0); MCV 89.2 fL (80.0-100.0); MEAN PLATELET VOLUME 9.7 fL (7.4-10.4); MONOCYTES 5.5 % (2-11); NEUTROPHILS 65.1 % (40-80); PLATELET COUNT 222 10x3/uL (130-400); RBC 4.46 10x6/uL (4.00-5.40); RDW 13.5 % (11.5-14.5); WBC 8.7 10x3/uL (4.8-10.8)
[2019-09-18 21:25] VITALS: BP 91/48
--- NOTE | 2019-09-18 21:38 | NUR ---
POISON CONTROL CALLED STATES THAT TIZANADINE CAN CAUSE HYPOTENTION AND BRADYCARDIA JUST SYTOMTOMATIC CARE NO ANTIDOTE. ALSO STATES THAT LIVER ENZYMES CAN BECOME ELEVATED AND TO RECHECK WITH AM LABS. AWARE.
--- NOTE | 2019-09-18 21:40 | NUR ---
URINE SENT TO THE LAB
[2019-09-18 21:46] VITALS: BP 81/48
[2019-09-18 21:52] LABS: APPEARANCE HAZY (CLEAR); BILIRUBIN NEGATIVE (NEGATIVE); COLOR YELLOW (YELLOW); GLUCOSE NEGATIVE (NEGATIVE); HCG URINE NEGATIVE (NEGATIVE); KETONE NEGATIVE (NEGATIVE); NITRITE NEGATIVE (NEGATIVE); PROTEIN NEGATIVE (NEGATIVE); SPECIFIC GRAVITY 1.015 (1.005-1.020)
[2019-09-18 21:57] LABS: UDS - AMPHET NEGATIVE QUAL (NEGATIVE); UDS - BARB NEGATIVE QUAL (NEGATIVE); UDS - BENZO NEGATIVE QUAL (NEGATIVE); UDS - COCAINE NEGATIVE QUAL (NEGATIVE); UDS - OPIATE NEGATIVE QUAL (NEGATIVE); UDS - PCP NEGATIVE QUAL (NEGATIVE); UDS - THC POSITIVE QUAL (NEGATIVE)
[2019-09-18 22:15] VITALS: BP 90/55
[2019-09-18 23:00] VITALS: BP 75/50
--- NOTE | 2019-09-18 23:15 | NUR ---
REC'D PT FROM ER, PT IN WHEELCHAIR AND ABULATED SELF INTO ICU BED, PT AWAKE AND ALERT, MONITORS ON AND WORKING, PT BP IN THE 80S HEART RATE IN THE 50S, PT DENIES ANY COMPLAINT OF PAIN OR DISCOMFORT, SITTER AT BEDSIDE, SEE FLOW SHEET FOR FURTHER DETAILS. WILL CONTINUE TO OBSERVE.
[2019-09-18 23:21] VITALS: BP 86/60; Ht 160 cm; Wt 88.6 kg
--- NOTE | 2019-09-18 23:29 | NUR ---
PT ADMITS TO THIS NURSE THAT SHE ATTEMPTED TO KILL HERSELF BY OVERDOSE. SHE TOOK 12 PILLS. PT HAS PERSONAL ISSUES WITH HER EX. EYE CONTACT IS POOR AND FLAT AFFECT NOTED. DR. GREEN NOTIFIED OF ASSESSMENT RESULTS AND PT HX ALONG WITH PT UNWILLINGNESS TO ANSWER SUICIDE SCREEN QUESTIONS TRUTHFULLY. DR. GREEN ORDERED A SITTER FOR SUICIDE RISK UNTIL ABLE TO SEE PT FOR FULL EVALUATION. SITTER AT BEDSIDE. SAFETY PLAN INITIATED.
[2019-09-19] VITALS (22 sets, daily range): BP systolic 77–114; BP diastolic 49–76
--- NOTE | 2019-09-19 01:00 | NUR ---
PT AWAKE AND ALERT, DENIES ANY COMPLAINT OF PAIN OR DISCOMFORT, IS COMPLIANT WITH ICU RULES, MONITORS ON AND WORKING, PT BP REMAINS IN THE LOW 80S, HEART RATE IN THE 50S. SITTER AT BEDSIDE, WILL CONTINUE TO OBSERVE.
--- NOTE | 2019-09-19 02:45 | NUR ---
LEVOPHED STARTED FOR HYPOTENSION. PT AWAKE AND ALERT, DENIES ANY COMPLAINT OF PAIN OR DISCOMFORT, WILL CONTINUE TO OBSERVE.
--- NOTE | 2019-09-19 03:00 | NUR ---
RIGHT FOREARM PIV PLACED. DRESSING CDI. NO CHNAGES, SEE FLOW SHEET FOR FURTHER DETIALS. WILL CONTINUE TO OBSERVE.
[2019-09-19 03:43] LABS: ALBUMIN 2.2 g/dL (3.4-5.0); ALKALINE PHOSPHATASE 56 U/L (46-116); ALT (SGPT) 16 U/L (10-68); BILIRUBIN - TOTAL 0.31 mg/dL (0.2-1.3); CALCIUM 7.1 mg/dL (8.5-10.1); CARBON DIOXIDE 20.1 mmol/L (21.0-32.0); CHLORIDE - SERUM 114 mmol/L (98-107); CREATININE - SERUM 0.7 mg/dL (0.6-1.3); POTASSIUM - SERUM 3.3 mmol/L (3.5-5.1); PROTEIN - SERUM 4.8 g/dL (6.4-8.2); SODIUM 142 mmol/L (136-145); UREA NITROGEN 13 mg/dL (7-18); eGFR NON AFRICAN AMERICAN > 90 mL/min (90-120)
[2019-09-19 03:44] LABS: CALC OSMOLALITY 283 mosm/kg (275-300); GLUCOSE 113 mg/dL (74-106)
--- NOTE | 2019-09-19 05:00 | NUR ---
PT LYING IN BED RESTING, MONITORS ON AND WORKING, VITALS STABLE, PT AWAKE AND ALERT, NO SIGNS/SYMPTOMS OF PAIN OR DISCOMFORT NOTED AT THIS TIME, WILL CONTINUE TO OBSERVE.
--- NOTE | 2019-09-19 07:33 | NUR ---
PATIENT GOT OUT OF BED TO GO TO BEDSIDE COMMODE AND IV CAME OUT. BLOOD PRESSURE STABLE AT THIS TIME. INFORMED THAT MAP GETS BELOW 65 WE WILL BEGIN AN IV IF NECESSARY. BIB [facility] STATED TO GO AHEAD AND SPEAK WITH BLEACH LIQUOR MAKER ABOUT GETTING PLACEMENT SHE SPOKE WITH DR GREEN ABOUT IT YESTERDAY. PATIENT IS ALERT AND ORIENTED. SITTER AT BEDSIDE. NO DISTRESS. DENIES PAIN AND NEEDS AT THIS TIME. WILL CONTINUE TOMONITOR. SEE ASSESSMENT.
--- NOTE | 2019-09-19 09:00 | NUR ---
PATIENT TOOK ELECTRODES OFF. NEW ELECTRODES APPLIED. WILL CONTACT NEERAJ TO BEGIN FACILITY PALCEMENT.
--- NOTE | 2019-09-19 11:33 | NUR ---
DR GREEN AT BEDSIDE.
--- NOTE | 2019-09-19 12:37 | NUR ---
PATIENT TRAY AT BEDSIDE. VSS. NO DISTRESS. WILL CONTINUE TO MONITOR
--- NOTE | 2019-09-19 14:12 | NUR ---
report called to matt.
--- NOTE | 2019-09-19 14:42 | NUR ---
called transfer center
--- NOTE | 2019-09-19 14:47 | NUR ---
patient going to [facility] room 87.1
--- NOTE | 2019-09-19 14:47 | NUR ---
ems will be her ein 30
--- NOTE | 2019-09-19 15:00 | MORECARE ---
CASE MANAGEMENT DISCHARGE SUMMARY PATIENT: ANSHUL OWUSU UNIT: [id number] ADM DATE: 09/18/19 AGE: 39 : [birth year] SEX: F ROOM/BED: D.2308 AUTHOR: FELICIA FRYE PHYSICIAN: REFERRING PHYSICIAN: EDMUND KENNEY MD DATE OF SERVICE: 09/19/19 Discharge Plan Patient Name: ANSHUL OWUSU [place] 1980 Planned Disposition: Psych facility Anticipated Discharge Date: Discharge Date: Expected LOS: Initial Reviewer: [email or web address] Initial Review Date: 09/19/2019 Generated: 09/19/19 4:00 pm External Providers External Provider: [facility] Next Contact Date: Service Request Date: Service Type: Resolution: Reviewer: Comments: Patient Name: ANSHUL OWUSU Page [id number] at 1500 All edits/amendments must be made on the electronic document DICTATION DATE: 09/19/19 1500 BOX SEALING MACHINE OPERATOR: ASIA 09/19/19 1500 RPT#: [id number] DC DATE: STATUS: ADM IN [facility] [address] [place] [address] END OF REPORT
--- NOTE | 2019-09-19 15:09 | MORECARE ---
CASE MANAGEMENT DISCHARGE SUMMARY PATIENT: ANSHUL OWUSU UNIT: [id number] ADM DATE: 09/18/19 AGE: 39 : 81 SEX: F ROOM/BED: D.2308 AUTHOR: FELICIA FRYE PHYSICIAN: REFERRING PHYSICIAN: EDMUND KENNEY MD DATE OF SERVICE: 09/19/19 Discharge Plan Patient Name: ANSHUL OWUSU [facility] [facility] 1980 Planned Disposition: Psych facility Anticipated Discharge Date: Discharge Date: Expected LOS: Initial Reviewer: [email or web address] Initial Review Date: 09/19/2019 Generated: 09/19/19 4:09 pm Comments DCP- Discharge Planning Updated by [email or web address]: Kristi Paiz on 09/19/19 2:[address] Patient Name: ANSHUL OWUSU Admission Status: ER Accout number: [id number] Admission Date: 09-18-2019 : 1980 Admission Diagnosis: Attending: EDMUND KENNEY Current LOS: 1 Anticipated DC Date: Planned Disposition: Psych facility Primary Insurance: [facility] [employer] Discharge Planning Comments: CM received notice for inpatient psych placement. CM called transfer center and faxed records. Patient is voluntarily going to inpatient psychiatric facility. [facility] in has accepted patient. Dr. Sanya Stoddard is accepting physician patient will go to room W8087.1 and nursing to call report to [phone]. Bacteriologist Soil: Kristi Paiz Last DP export: 09/19/19 2:00 Patient Name: ANSHUL OWUSU Page 85189 at 1509 All edits/amendments must be made on the electronic document DICTATION DATE: 09/19/19 150 PLUMBER APPRENTICE: ASIA 09/19/19 1509 RPT#: [id number] DC DATE: STATUS: ADM IN [facility] [address] [place] [address] END OF REPORT
--- NOTE | 2019-09-19 18:59 | MORECARE ---
CASE MANAGEMENT DISCHARGE SUMMARY PATIENT: ANSHUL OWUSU UNIT: [id number] ADM DATE: 09/18/19 AGE: 39 : [birth year] SEX: F ROOM/BED: D.2308 AUTHOR: FELICIA FRYE PHYSICIAN: REFERRING PHYSICIAN: EDMUND KENNEY MD DATE OF SERVICE: 09/19/19 Discharge Plan Patient Name: ANSHUL OWUSU [facility] [facility] 1980 Planned Disposition: Psych facility Anticipated Discharge Date: Discharge Date: 09/19/2019 Expected LOS: Initial Reviewer: [email or web address] Initial Review Date: 09/19/2019 Generated: 09/19/19 7:59 pm Comments DCP- Discharge Planning Updated by [email or web address]: Kristi Paiz on 09/19/19 2:[address] Patient Name: ANSHUL OWUSU Admission Status: ER Accout number: [id number] Admission Date: 09-18-2019 : 1980 Admission Diagnosis: Attending: EDMUND KENNEY Current LOS: 1 Anticipated DC Date: Planned Disposition: Psych facility Primary Insurance: [facility] [employer] Discharge Planning Comments: CM received notice for inpatient psych placement. CM called transfer center and faxed records. Patient is voluntarily going to inpatient psychiatric facility. [facility] in [place] has accepted patient. Dr. Sanya Stoddard is accepting physician patient will go to room W8087.1 and nursing to call report to [phone]. County Sheriff: Kristi Paiz Last DP export: 09/19/19 2:09 Patient Name: ANSHUL OWUSU Page [phone] at 1859 All edits/amendments must be made on the electronic document DICTATION DATE: 09/19/191858 AUTOMOBILE SPRING REPAIRER: ASIA 09/19/191858 RPT#: [id number] DC DATE:09/19/19 STATUS: DIS IN [facility] [address] [place] [address] END OF REPORT
--- NOTE | 2019-09-19 20:35 | CN ---
PATIENT NAME:ANSHUL OWUSU MEDICAL RECORD: [id number] : 82 LOCATION:[place]ANI[place].2308 ADMIT DATE: 09/18/19 ACCOUNT: [id number] CONSULTING PHYSICIAN: SID GREEN MD REFERRING PHYSICIAN: EDMUND KENNEY MD DATE OF CONSULTATION: 09/19/2019 PSYCHIATRIC CONSULTATION IDENTIFYING DATA: The patient is 39 years old and she is admitted to the hospital on a voluntary basis. CHIEF COMPLAINT: Overdose. HISTORY OF PRESENT ILLNESS: The patient is having some sort of problem with her . They have filed for divorce. They live separately. The patient has or recently had a boyfriend, but they have broken up. She wanted to go and spend the night with her estranged , but he did not want her there. She subsequently took an undetermined amount of Zanaflex and Abilify and made statements about wanting to kill herself. The patient's sister called emergency services and she was brought to the Emergency Room where she repeated the statements. Today in the intensive care unit, she is stabilized and is denying any thoughts of wanting to harm herself. She says she needs to leave because she has a job. 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 She denies drug or alcohol use, but she is positive for marijuana in her urine. When asked about this, she becomes circumspect and difficult to follow. As best I can understand, she is positive for marijuana because her with whom she does not live smokes it and she is breathing the secondhand smoke. She denies alcohol abuse and indeed she did not have a blood alcohol level. She is fully oriented. Her mood is depressed. Thought processes are generally goal directed. She denies psychotic symptoms as well as thoughts of wanting to harm herself or others. ASSESSMENT: 1. Bipolar disorder by history. 2. Status post overdose. PLAN: The patient has been on social security disability since 2010. She receives social security disability for bipolar disorder. She does not see a psychiatrist and does not take a mood stabilizing agent. She again becomes difficult to follow when asked to explain this. She does, however, take Cymbalta, Abilify, Requip, Topamax, and Neurontin. It is my opinion that the patient is actually having bipolar disorder should definitely be under the care of a psychiatrist and should not be permitted to leave the hospital after engaging in a suicide attempt. I am recommending that she be transferred to acute inpatient mental health care as soon as it is a practical to do so. She is willing to go on a voluntary basis. TRANSINT:[id number] Voice Confirmation ID: [id number] DOCUMENT ID: [id number] CONSULT REPORT [id number] ANSHUL OWUSU PETER MD at 2035 CC: [id number] DICTATION DATE: 09/19/191118 HEAD CHARRER: 09/19/19 1325 DIS IN 09/19/19 [facility] [address] [place] [address]
== END 2019-09-19 16:02 | disposition short-term general hospital (02) ==
LOC: D.ER 20:22 → D.ICU 22:02 → OBSVTIME 22:02 → D.ICU 22:02
PROVIDERS: Family Medicine; ADMIT Internal Medicine Nephrology; ATTEND Internal Medicine Nephrology
DX: T42.8X2A Poisoning by antiparkinsonism drugs and other central muscle-tone depressants, intentional self-harm, initial encounter (principal); T43.592A Poisoning by other antipsychotics and neuroleptics, intentional self-harm, initial encounter; F31.9 Bipolar disorder, unspecified; F41.8 Other specified anxiety disorders; G25.81 Restless legs syndrome; M79.7 Fibromyalgia; E87.6 Hypokalemia; F12.90 Cannabis use, unspecified, uncomplicated

== ENCOUNTER 2019-10-26 07:03 | Emergency (ER) | payer MEDICARE, MEDICAID ==
[~2019-10-26] VITALS: Ht 160 cm; Wt 88.6 kg
[2019-10-26 07:07] VITALS: Ht 160 cm; Wt 88.6 kg
[2019-10-26] MEDS ORDERED: KEFLEX500 MG PO (07:22)
[2019-10-26 07:41] VITALS: BP 132/68
== END 2019-10-26 07:41 | disposition home or self-care (01) ==
LOC: D.ER 07:03
DX: J32.9 Chronic sinusitis, unspecified (principal); R51 Headache; K21.9 Gastro-esophageal reflux disease without esophagitis

== ENCOUNTER 2019-10-29 21:10 | Emergency (ER) | payer MEDICARE, MEDICAID ==
[~2019-10-29] VITALS: Ht 160 cm; Wt 84.1 kg
[~2019-10-29 21:10] MED LIST changes: +KEFLEX500 MG PO
[2019-10-29 21:16] VITALS: Ht 160 cm; Wt 84.1 kg
[2019-10-29] MEDS ORDERED: TESSALON PERLE100 MG PO (22:10)
[2019-10-29] MEDS ORDERED: FLUTICASONE PRO16 GM NASAL (22:10)
[2019-10-29] MEDS ORDERED: PREDNISONE10 MG PO (22:10)
[2019-10-29 22:49] VITALS: BP 112/64
== END 2019-10-29 22:45 | disposition home or self-care (01) ==
LOC: D.ER 21:10
DX: J40 Bronchitis, not specified as acute or chronic (principal); M79.7 Fibromyalgia

== ENCOUNTER 2019-10-31 01:28 | Emergency (ER) | payer MEDICARE, MEDICAID ==
[~2019-10-31] VITALS: Ht 160 cm; Wt 88.6 kg
[~2019-10-31 01:28] MED LIST changes: +FLUTICASONE PRO16 GM NASAL; +PREDNISONE10 MG PO
[2019-10-31 01:38] VITALS: Ht 160 cm; Wt 88.6 kg
[2019-10-31 02:05] LABS: APPEARANCE CLOUDY (CLEAR); BILIRUBIN NEGATIVE (NEGATIVE); COLOR YELLOW (YELLOW); GLUCOSE NEGATIVE (NEGATIVE); KETONE NEGATIVE (NEGATIVE); NITRITE NEGATIVE (NEGATIVE); PROTEIN 3+ mg/dL (NEGATIVE); SPECIFIC GRAVITY 1.025 (1.005-1.020); UROBILINOGEN NORMAL (NORMAL)
[2019-10-31 02:10] LABS: EPITHELIAL CELLS 0-5 /hpf (0-5)
[2019-10-31 02:11] LABS: BACTERIA MODERATE /hpf (NEGATIVE); SPERMATOZOA PRESENT /hpf (NONE SEEN)
[2019-10-31] MEDS ORDERED: LEVOFLOXACIN500 MG PO (02:44)
[2019-10-31 02:56] VITALS: BP 114/70
== END 2019-10-31 02:55 | disposition home or self-care (01) ==
LOC: D.ER 01:28
PROVIDERS: Family Medicine
DX: G43.909 Migraine, unspecified, not intractable, without status migrainosus (principal); N39.0 Urinary tract infection, site not specified; M79.7 Fibromyalgia

== ENCOUNTER 2019-11-05 23:36 | Emergency (ER) | payer MEDICARE, MEDICAID ==
[~2019-11-05] VITALS: Ht 160 cm; Wt 84.1 kg
[~2019-11-05 23:36] MED LIST changes: +LEVOFLOXACIN500 MG PO
[2019-11-05 23:39] VITALS: Ht 160 cm; Wt 84.1 kg
[2019-11-05 23:56] LABS: APPEARANCE CLEAR (CLEAR); BILIRUBIN NEGATIVE (NEGATIVE); COLOR YELLOW (YELLOW); GLUCOSE NEGATIVE (NEGATIVE); KETONE NEGATIVE (NEGATIVE); NITRITE NEGATIVE (NEGATIVE); PROTEIN NEGATIVE (NEGATIVE); UROBILINOGEN NORMAL (NORMAL)
[2019-11-06] MEDS ORDERED: ULTRAM50 MG PO (00:07)
[2019-11-06 00:21] VITALS: BP 103/62
== END 2019-11-06 00:22 | disposition home or self-care (01) ==
LOC: D.ER 23:36
PROVIDERS: Emergency Medicine
DX: M54.5 Low back pain (principal); M79.7 Fibromyalgia

== ENCOUNTER 2019-11-21 08:02 | Emergency (ER) | payer MEDICARE, MEDICAID ==
[~2019-11-21] VITALS: Ht 160 cm; Wt 84.1 kg
[~2019-11-21 08:02] MED LIST changes: +ULTRAM50 MG PO
[2019-11-21 08:09] VITALS: Ht 160 cm; Wt 84.1 kg
[2019-11-21 09:05] LABS: APTT 31.3 SECONDS (22.8-39.4); INR 1.02 (0.85-1.17); PROTIME 13.4 SECONDS (11.6-15.0)
[2019-11-21 09:07] LABS: BASOPHILS 0.8 % (0-2); D-DIMER-QUANTITATIVE 0.38 ug/mLFEU (0.20-0.54); EOSINOPHILS 12.5 % (0-7); HEMATOCRIT 38.4 % (36.0-48.0); HEMOGLOBIN 13.2 g/dL (12-16); IMMATURE GRANULOCYTES 0.2 % (0-5); LYMPHOCYTES 31.6 % (15-50); MCHC 34.4 g/dL (31.0-37.0); MCV 87.3 fL (80.0-100.0); MEAN PLATELET VOLUME 9.5 fL (7.4-10.4); NEUTROPHILS 46.9 % (40-80); PLATELET COUNT 186 10x3/uL (130-400); RDW 12.7 % (11.5-14.5)
[2019-11-21 09:37] LABS: CREATINE KINASE 276 UL (21-215)
[2019-11-21 09:38] LABS: CKMB 2.2 U/L (0.0-3.6)
[2019-11-21 09:58] LABS: APPEARANCE CLEAR (CLEAR); COLOR YELLOW (YELLOW); GLUCOSE NEGATIVE (NEGATIVE); KETONE NEGATIVE (NEGATIVE); NITRITE NEGATIVE (NEGATIVE); PROTEIN NEGATIVE (NEGATIVE)
[2019-11-21 09:59] LABS: BILIRUBIN NEGATIVE (NEGATIVE); UROBILINOGEN NORMAL (NORMAL)
[2019-11-21 10:12] LABS: UDS - AMPHET NEGATIVE QUAL (NEGATIVE); UDS - BARB NEGATIVE QUAL (NEGATIVE); UDS - BENZO NEGATIVE QUAL (NEGATIVE); UDS - COCAINE NEGATIVE QUAL (NEGATIVE); UDS - OPIATE POSITIVE QUAL (NEGATIVE); UDS - PCP NEGATIVE QUAL (NEGATIVE); UDS - THC POSITIVE QUAL (NEGATIVE)
[2019-11-21 10:17] VITALS: BP 102/57
== END 2019-11-21 10:20 | disposition home or self-care (01) ==
LOC: D.ER 08:02
PROVIDERS: Family Medicine
DX: M54.30 Sciatica, unspecified side (principal); M54.9 Dorsalgia, unspecified

== ENCOUNTER 2019-12-16 08:08 | Emergency (ER) | payer MEDICARE, MEDICAID ==
[~2019-12-16] VITALS: Ht 160 cm; Wt 84.1 kg
[~2019-12-16 08:08] MED LIST changes: +ACETAMINOPHEN500 M1 PO; +TAMIFLU75 MG PO
[2019-12-16 08:13] VITALS: Ht 160 cm; Wt 84.1 kg
[2019-12-16 08:56] VITALS: BP 143/90
== END 2019-12-16 08:58 | disposition home or self-care (01) ==
LOC: D.ER 08:08
DX: M79.604 Pain in right leg (principal); M79.18 Myalgia, other site

== ENCOUNTER 2019-12-24 13:32 | Emergency (ER) | payer MEDICARE, MEDICAID ==
[~2019-12-24] VITALS: Ht 160 cm; Wt 83.2 kg
[2019-12-24 13:34] VITALS: Ht 160 cm; Wt 83.2 kg
[2019-12-24] MEDS ORDERED: BACLOFEN20 M1 PO (14:14)
[2019-12-24] MEDS ORDERED: PREDNISONE20 MG PO (14:14)
[2019-12-24 14:33] VITALS: BP 120/72
== END 2019-12-24 14:33 | disposition home or self-care (01) ==
LOC: D.ER 13:32
DX: S86.901A Unspecified injury of unspecified muscle(s) and tendon(s) at lower leg level, right leg, initial encounter (principal); X58.XXXA Exposure to other specified factors, initial encounter; M79.10 Myalgia, unspecified site; G25.81 Restless legs syndrome

== ENCOUNTER → 2020-01-09 09:50 | Outpatient (CLI) | payer MEDICARE, MEDICAID ==
[2019-12-24 13:34] VITALS: BMI 32.4
[~2020-01-09 09:50] MED LIST changes: +BACLOFEN20 M1 PO; +PREDNISONE20 MG PO
== END | disposition home or self-care (01) ==
LOC: D.MRI 09:50
PROVIDERS: ATTEND Orthopaedic Surgery
DX: M70.71 Other bursitis of hip, right hip (principal)

== ENCOUNTER → 2020-01-31 12:34 | Outpatient (CLI) | payer MEDICARE, MEDICAID ==
[2019-12-24 13:34] VITALS: BMI 32.4
== END | disposition home or self-care (01) ==
LOC: D.MRI 08:00
PROVIDERS: ATTEND Orthopaedic Surgery
DX: M54.16 Radiculopathy, lumbar region (principal)

== ENCOUNTER 2020-02-14 05:55 | Emergency (ER) | payer MEDICARE, MEDICAID ==
[~2020-02-14] VITALS: Ht 160 cm; Wt 82.6 kg
[2020-02-14 06:02] VITALS: Ht 160 cm; Wt 82.6 kg
[2020-02-14] MEDS ORDERED: CYCLOBENZAPRINE10 MG PO (06:17)
[2020-02-14] MEDS ORDERED: HYDROCODON-ACE1 EAC2 PO (06:17)
[2020-02-14 06:39] VITALS: BP 112/64
== END 2020-02-14 06:40 | disposition home or self-care (01) ==
LOC: D.ER 05:55
DX: M54.5 Low back pain (principal); M54.16 Radiculopathy, lumbar region

== ENCOUNTER 2020-02-26 04:31 | Emergency (ER) | payer MEDICARE, MEDICAID ==
[~2020-02-26] VITALS: Ht 160 cm; Wt 83.2 kg
[~2020-02-26 04:31] MED LIST changes: +HYDROCODON-ACE1 EAC2 PO
[2020-02-26 04:35] VITALS: Ht 160 cm; Wt 83.2 kg
[2020-02-26] MEDS ORDERED: ULTRAM50 MG PO (04:58)
[2020-02-26 05:35] VITALS: BP 110/70
== END 2020-02-26 05:35 | disposition home or self-care (01) ==
LOC: D.ER 04:31
DX: M54.5 Low back pain (principal); M54.31 Sciatica, right side; G89.29 Other chronic pain

== ENCOUNTER 2020-03-02 04:45 | Emergency (ER) | payer MEDICARE, MEDICAID ==
[~2020-03-02] VITALS: Ht 160 cm; Wt 83.0 kg
[2020-03-02 04:59] VITALS: Ht 160 cm; Wt 83.0 kg
[2020-03-02] MEDS ORDERED: ULTRAM50 MG PO (05:22)
[2020-03-02 06:11] VITALS: BP 122/70
== END 2020-03-02 06:11 | disposition home or self-care (01) ==
LOC: D.ER 04:45
DX: M54.5 Low back pain (principal); G89.29 Other chronic pain; M54.31 Sciatica, right side

== ENCOUNTER 2020-03-05 08:14 | Emergency (ER) | payer MEDICARE, MEDICAID ==
[~2020-03-05] VITALS: Ht 160 cm; Wt 82.7 kg
[2020-03-05 08:20] VITALS: Ht 160 cm; Wt 82.7 kg
[2020-03-05 09:14] VITALS: BP 110/83
[2020-03-07] MEDS ORDERED: PHENERGAN25 M1 (13:10)
== END 2020-03-05 09:14 | disposition home or self-care (01) ==
LOC: D.ER 08:14
DX: M54.5 Low back pain (principal); G89.29 Other chronic pain; M54.30 Sciatica, unspecified side

== ENCOUNTER 2020-03-08 06:10 | Day surgery (SDC) | payer MEDICARE, MEDICAID ==
[2020-03-07 13:53] LABS: ANION GAP 12.4 mmol/L (8-16); CALCIUM 8.4 mg/dL (8.5-10.1); CARBON DIOXIDE 25.1 mmol/L (21.0-32.0); CREATININE - SERUM 0.9 mg/dL (0.6-1.3); POTASSIUM - SERUM 3.5 mmol/L (3.5-5.1)
[2020-03-07 14:00] LABS: BASOPHILS 0.7 % (0-2); EOSINOPHILS 4.1 % (0-7); HEMATOCRIT 45.6 % (36.0-48.0); HEMOGLOBIN 14.9 g/dL (12-16); IMMATURE GRANULOCYTES 0.2 % (0-5); LYMPHOCYTES 29.3 % (15-50); MCH 28.8 pg (26.0-34.0); MCHC 32.7 g/dL (31.0-37.0); MCV 88.2 fL (80.0-100.0); MEAN PLATELET VOLUME 9.8 fL (7.4-10.4); MONOCYTES 6.9 % (2-11); NEUTROPHILS 58.8 % (40-80); RBC 5.17 10x6/uL (4.00-5.40); RDW 12.9 % (11.5-14.5); WBC 5.8 10x3/uL (4.8-10.8)
[2020-03-07 14:19] LABS: PLATELET COUNT 185 10x3/uL (130-400)
[~2020-03-08] VITALS: Ht 160 cm; Wt 82.6 kg
--- NOTE | ~2020-03-08 | OP ---
PATIENT NAME: ANSHUL OWUSU MEDICAL RECORD: [id number] :82 LOCATION:[facility] ADMISSION DATE: SURGEON: CLIVE MARKS MD DATE OF OPERATION: 03/08/2020 PREOPERATIVE DIAGNOSES: Lumbar spinal stenosis at L5-S1 on the right and disc protrusion at L5-S1 on the right. PROCEDURES: Lumbar laminotomy, medial facetectomy and foraminotomy at L5-S1 on the right with discectomy. SURGEON: Clive Marks MD DESCRIPTION AND TECHNIQUE: After induction of general endotracheal anesthesia, the patient was rolled prone on the Jewel frame. Lumbar spine was prepped and draped in usual sterile fashion. Fluoroscopic x-ray and spinal needle localized the L5-S1 interspace on the right side. A series of dilators were used to advance a [employer] retractor at L5-S1 interspace on the right side. The level was confirmed with fluoroscopic x-ray. A microscope and Midas Narayan drill were used to perform a laminotomy, medial facetectomy and a foraminotomy at L5-S1 on the right. There is an obvious disc herniation within the axilla of the L5-S1 nerve root. This was removed with pituitary rongeurs and curettes. Following this, the S1 nerve root was decompressed well. Additional disc material was removed from the disc space on the right side, Meticulous hemostasis was maintained throughout the wound. The wound was irrigated with copious amounts of Ancef irrigant solution. The retractor was removed. The fascia was closed with 2-0 Vicryl suture. The subdermal layer was closed with 3-0 suture. The skin was closed with valeria. A sterile dressing was applied to the wound. The patient was awakened in good condition and taken to recovery. All counts were reported as correct. ESTIMATED BLOOD LOSS: Minimal. TRANSINT:[id number] Voice Confirmation ID: [id number] DOCUMENT ID: [id number] CLIVE MARKS MD CC: [id number] DICTATION DATE: 03/26/20711 EXPLOSIVE SPECIALIST: 03/26/20 1041 [facility] 03/08/20 [facility] [address] [place] [address]
[~2020-03-08 06:10] MED LIST changes: +PHENERGAN25 M1
[2020-03-08 07:17] VITALS: BP 104/75; Ht 160 cm; Wt 82.6 kg
--- NOTE | 2020-03-08 13:38 | NUR ---
1229-AMBULATED TO RESTROOM WITH SLOW STEADY DIET. ABLE TO VOID WITHOUT COMPLICATIONS.VSS. DENIES PAIN. DERMABOND CDI TO BACK. CL IN EASY REACH.
--- NOTE | 2020-03-08 13:39 | NUR ---
1315-TOLERATED JUICE,JELLO,AND PUDDING.VSS. NO DISTRESS. NO N/V. DENIES PAIN. DERMABOND CDI TO BACK. REVIEWED POST OPERATIVE INSTRUCTIONS AND FOLLOW UP APPOINTMENT.VERBALIZED UNDERSTANDING. REMOVED IV WITH CATH INTACT,DISPOSED INTO SHARPS,COVERED WITH COTTON BALL,SECURED WITH MEDIPORE TAPE.
--- NOTE | 2020-03-08 13:42 | NUR ---
1330-PT DRESSED. ESCORTED OUT VIA W/C WITH FRIEND AWAITING TO DRIVE HOME.
== END 2020-03-08 13:30 | disposition home or self-care (01) ==
LOC: D.PAN 06:10 → D.OPS 09:30 → D.PAN 09:30
PROVIDERS: Anesthesiology; ATTEND Neurological Surgery
DX: M48.061 Spinal stenosis, lumbar region without neurogenic claudication (principal); M51.27 Other intervertebral disc displacement, lumbosacral region; M53.86 Other specified dorsopathies, lumbar region; M54.16 Radiculopathy, lumbar region; E66.9 Obesity, unspecified; Z68.30 Body mass index [BMI] 30.0-30.9, adult

== ENCOUNTER 2020-05-05 03:38 | Emergency (ER) | payer MEDICARE, MEDICAID ==
[~2020-05-05] VITALS: Ht 160 cm; Wt 78.0 kg
[2020-05-05 03:43] VITALS: Ht 160 cm; Wt 78.0 kg
[2020-05-05 04:53] VITALS: BP 112/60
[2020-05-06] MEDS ORDERED: SUMATRIPTAN SUC25 MG PO (16:32)
== END 2020-05-05 04:53 | disposition home or self-care (01) ==
LOC: D.ER 03:38
DX: G43.009 Migraine without aura, not intractable, without status migrainosus (principal)

== ENCOUNTER 2020-05-06 15:03 | Emergency (ER) | payer MEDICARE, MEDICAID ==
[~2020-05-06] VITALS: Ht 160 cm; Wt 78.0 kg
[2020-05-06 15:38] VITALS: Ht 160 cm; Wt 78.0 kg
[2020-05-06] MEDS ORDERED: SUMATRIPTAN SUC25 MG PO (16:32)
[2020-05-06 17:08] VITALS: BP 104/61
== END 2020-05-06 17:09 | disposition home or self-care (01) ==
LOC: D.ER 15:03
DX: G43.909 Migraine, unspecified, not intractable, without status migrainosus (principal); R11.0 Nausea

== ENCOUNTER 2020-05-09 04:13 | Emergency (ER) | payer MEDICARE, MEDICAID ==
[~2020-05-09] VITALS: Ht 160 cm; Wt 78.2 kg
[~2020-05-09 04:13] MED LIST changes: +SUMATRIPTAN SUC25 MG PO
[2020-05-09 04:18] VITALS: Ht 160 cm; Wt 78.2 kg
[2020-05-09 05:42] VITALS: BP 106/54
== END 2020-05-09 05:44 | disposition home or self-care (01) ==
LOC: D.ER 04:13
DX: G43.909 Migraine, unspecified, not intractable, without status migrainosus (principal); R11.0 Nausea

== ENCOUNTER 2020-05-19 03:42 | Emergency (ER) | payer MEDICARE, MEDICAID ==
[~2020-05-19] VITALS: Ht 160 cm; Wt 78.0 kg
[2020-05-19 03:54] VITALS: Ht 160 cm; Wt 78.0 kg
[2020-05-19 05:37] VITALS: BP 107/59
== END 2020-05-19 05:18 | disposition home or self-care (01) ==
LOC: D.ER 03:42
DX: G43.909 Migraine, unspecified, not intractable, without status migrainosus (principal)

== ENCOUNTER 2020-08-06 03:01 | Emergency (ER) | payer MEDICARE, MEDICAID ==
[~2020-08-06] VITALS: Ht 160 cm; Wt 75.0 kg
[2020-08-06 03:04] VITALS: BP 116/40; Ht 160 cm; Wt 75.0 kg
== END 2020-08-06 04:02 | disposition home or self-care (01) ==
LOC: D.ER 03:01
DX: G43.909 Migraine, unspecified, not intractable, without status migrainosus (principal)

== ENCOUNTER → 2021-01-29 11:00 | Outpatient (CLI) | payer MEDICARE, MEDICAID ==
[2020-08-25 18:48] VITALS: BMI 29.3
[~2021-01-29 11:00] MED LIST changes: +CORTISPORIN OTI10 M1 LEFT EAR
[2021-01-29 11:23] LABS: BASOPHILS 0.6 % (0-2); EOSINOPHILS 10.8 % (0-7); HEMATOCRIT 42.3 % (36.0-48.0); IMMATURE GRANULOCYTES 0.2 % (0-5); LYMPHOCYTE ABS# 1.33 10x3/uL (1.18-3.74); LYMPHOCYTES 26.7 % (15-50); MCH 29.8 pg (26.0-34.0); MCHC 33.1 g/dL (31.0-37.0); MEAN PLATELET VOLUME 9.7 fL (7.4-10.4); MONOCYTES 6.4 % (2-11); NEUTROPHIL ABS# 2.75 10x3/uL (1.56-6.13); NEUTROPHILS 55.3 % (40-80); PLATELET COUNT 176 10x3/uL (130-400); RDW 12.3 % (11.5-14.5)
[2021-01-29 11:39] LABS: ALBUMIN 3.7 g/dL (3.4-5.0); ANION GAP 11.2 mmol/L (8-16); BILIRUBIN - TOTAL 0.23 mg/dL (0.2-1.3); CALCIUM 8.4 mg/dL (8.5-10.1); CARBON DIOXIDE 25.5 mmol/L (21.0-32.0); CREATININE - SERUM 0.9 mg/dL (0.6-1.3); POTASSIUM - SERUM 3.7 mmol/L (3.5-5.1)
== END | disposition home or self-care (01) ==
LOC: D.LAB 11:00
PROVIDERS: ATTEND Psychiatry & Neurology Neurology
DX: G43.909 Migraine, unspecified, not intractable, without status migrainosus (principal)